=== PATIENT | male | born 1990 | race American Indian/Alaskan Native ===

== ENCOUNTER 2018-01-11 08:15 | Emergency (ER) | payer OTHER ==
[2018-01-11 08:20] VITALS: BMI 18.7
[2018-01-11 08:21] VITALS: RESP 18; O2SAT 100
[2018-01-11] MEDS ORDERED: Amoxicillin-Clav 875-125 mg Tab PO STA (08:39)
[2018-01-11] MEDS ORDERED: Amoxicillin-Clav 875-125 mg Tab PO ONE (09:04)
--- NOTE | 2018-01-11 09:32 | C.PDOC ---
History Of Present Illness 27 yeas old male presents to ED for evaluation of bodyaches, malaise, fever, and sore throat that began a week ago. Patient also reports experiencing moderate discomfort while swallowing last night. Denies high fever, severe headache, dizziness, drooling, neck pain, cough, abd. pain, N/V, back pain, UTi sx. Ambulate to Ed for evaluation, not in any apparent distress. Time Seen by Provider: 01/11/18 08:27 Chief Complaint (Nursing): ENT Problem History Per: Patient History/Exam Limitations: None Onset/Duration Of Symptoms: Days (7) Current Symptoms Are (Timing): Still Present Quality (Mouth/Throat): Other (Sore throat and moderate discomfort while swallowing). denies: Drainage Symptoms Have Been: Continuous Anticoagulant/Antiplatlet Use?: Unknown Recent Aspirin Use: Unknown Past Medical History Reviewed: Historical Data, Nursing Documentation, Vital Signs Vital Signs: Last Vital Signs Temp 98.6 F 01/11/18 09:48 Pulse 57 L 01/11/18 09:48 Resp 18 01/11/18 09:48 BP 119/75 01/11/18 09:48 Pulse Ox 100 01/11/18 09:49 - Medical History PMH: No Chronic Diseases Surgical History: No Surg Hx Family History: States: No Known Family Hx - Social History Hx Alcohol Use: No Hx Substance Use: No - Immunization History Hx Tetanus Toxoid Vaccination: No Hx Influenza Vaccination: Yes Hx Pneumococcal Vaccination: No Review Of Systems Constitutional: Positive for: Fever, Malaise. Negative for: Chills ENT: Positive for: Throat Pain (Sore Throat associated with moderate discomfort when swallowing ). Negative for: Other (Drooling) Gastrointestinal: Negative for: Nausea, Vomiting, Diarrhea Musculoskeletal: Positive for: Other (Bodyaches) Skin: Negative for: Rash Neurological: Negative for: Weakness, Numbness, Headache, Dizziness Physical Exam - Physical Exam Appears: Well, Non-toxic, No Acute Distress Skin: Normal Color, Warm, Dry, No Rash Head: Normacephalic Eye(s): bilateral: PERRL Ear(s): Bilateral: Normal Nose: No Flaring, No Discharge Oral Mucosa: Moist, No Drooling, No Trismus Tongue: No Swelling Lips: No Swelling Throat: Erythema (B/L moderate), Exudate (mod B/L), No Drooling, Other (uvula midline, no edema.) Neck: Trachea Midline, Supple Cardiovascular: Rhythm Regular, No Murmur, No JVD Respiratory: No Decreased Breath Sounds, No Accessory Muscle Use, No Stridor, No Wheezing Gastrointestinal/Abdominal: Soft, No Tenderness, No Distention, No Guarding Back: No CVA Tenderness Extremity: Normal ROM, No Deformity, No Swelling Neurological/Psych: Oriented x3, Normal Speech ED Course And Treatment O2 Sat by Pulse Oximetry: 100 (RA) Pulse Ox Interpretation: Normal Progress Note: On re-evaluation, pt is afebrile, hemodynamicaly stable. Non- toxic. Tolerate PO well in ED. PulseOx 100% RA. NEck: Supple, (-)meningeal sign. ENT: exam c/w acute pharyngitis, uvula midline, no edema. Lungs: CTA B/L , BS equal B/L. ABd: benign, (-) guarding, (-) rebound. Neurologicaly intact. Rapid strep (+). [place] (-). Pt has clinical findings c/w strep pharyngitis. Pt advised. ref. to f/u with ENT in 2-3 days for re-evaluation. return to ED if any worsening or new changes. Disposition Counseled Patient/Family Regarding: Studies Performed, Diagnosis, Need For Followup, Rx Given - Disposition Referrals: [facility] [Outside] Rob Atkins MD [Staff Provider] - Disposition: HOME/ ROUTINE Disposition Time: 09:10 Condition: STABLE Additional Instructions: Encourage fluids Take medication as prescribed Follow up with PMD, ENT in 2-3 days for re-evaluation. return to ED if any worsening or new changes. 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 - Scribe Statement The provider has reviewed the documentation as recorded by the Scribe Tuan Pop All medical record entries made by the Scribe were at my direction and personally dictated by me. I have reviewed the chart and agree that the record accurately reflects my personal performance of the history, physical exam, medical decision making, and the department course for this patient. I have also personally directed, reviewed, and agree with the discharge instructions and disposition.
[2018-01-11 09:50] VITALS: BP 119/75; PULSE 57; TEMP 98.6
== END 2018-01-11 09:50 | disposition home or self-care (01) ==
LOC: C.ER 08:15
DX: J02.0 Streptococcal pharyngitis (principal)